=== PATIENT | female | born 1975 | race Caucasian/White ===

== ENCOUNTER 2017-11-22 11:12 | Emergency (ER) | payer BC ==
[2017-11-22 12:27] VITALS: BP 145/99
--- NOTE | 2017-11-22 13:02 | UC ---
Throat Pain/Nasal Song HPI - HPI Summary HPI Summary: Started getting sick with normal cold symptoms 10 days ago after everyone else in house had gotten similar cold. Since then congestion has settled in forehead/ face. Denies fever, trouble breathing, or cough. - History of Current Complaint Chief Complaint: UCRespiratory Stated Complaint: CONGESTED Time Seen by Provider: 11/22/17 12:54 Hx Obtained From: Patient Hx Last Menstrual Period: IUD ?: No Onset/Duration: Gradual Onset, Lasting Days Severity: Mild Pain Intensity: 4 Cough: None Associated Signs & Symptoms: Positive: Sinus Discomfort, Nasal Discharge. Negative: Wheezing, Hoarseness - Allergies/Home Medications Allergies/Adverse Reactions: Allergies Allergy/AdvReac Type Severity Reaction Status Date / Time No Known Allergies Allergy Verified 11/22/17 12:28 Home Medications: Home Medications buPROPion HCl [Forfivo Xl] 1 tab PO DAILY 11/22/17 [History Confirmed 11/22/17] PMH/Surg Hx/FS Hx/Imm Hx Psychological History: Anxiety, Depression - Surgical History Surgical History: None - Social History Occupation: Unemployed Lives: With Family Alcohol Use: Rare Substance Use Type: None Smoking Status (MU): Never Smoked Tobacco Review of Systems Constitutional: Negative Skin: Negative Eyes: Negative ENT: Nasal Discharge, Sinus Congestion Respiratory: Negative Cardiovascular: Negative Gastrointestinal: Negative Genitourinary: Negative Motor: Negative Neurovascular: Negative Musculoskeletal: Negative Neurological: Negative Psychological: Negative Is Patient Immunocompromised?: No All Other Systems Reviewed And Are Negative: Yes Physical Exam Triage Information Reviewed: Yes Appearance: Well-Appearing, No Pain Distress, Well-Nourished Vital Signs: Initial Vital Signs Temp 98.6 F 11/22/17 12:25 Pulse 68 11/22/17 12:25 Resp 18 11/22/17 12:25 BP 145/99 11/22/17 12:25 Pulse Ox 99 11/22/17 12:25 Vital Signs Reviewed: Yes Eye Exam: Normal Eyes: Positive: Conjunctiva Clear ENT: Positive: Hearing grossly normal, Pharynx normal, Nasal congestion, TMs normal, Sinus tenderness - diffuse. Negative: Nasal drainage Dental Exam: Normal Neck exam: Normal Neck: Positive: Supple, Nontender, No Lymphadenopathy Respiratory Exam: Normal Respiratory: Positive: Chest non-tender, Lungs clear, Normal breath sounds, No respiratory distress, No accessory muscle use Cardiovascular Exam: Normal Cardiovascular: Positive: RRR, No Murmur Musculoskeletal Exam: Normal Neurological Exam: Normal Neurological: Positive: Alert Psychological Exam: Normal Skin Exam: Normal Throat Pain/Nasal Course/Dx - Differential Dx/Diagnosis Provider Diagnoses: Acute rhinosinusitis Discharge - Discharge Plan Condition: Stable Disposition: HOME Prescriptions: Amoxicillin/Clavulanate TAB* [Augmentin TAB 875*] 875 mg PO BID #14 tab Patient Education Materials: Rhinosinusitis (ED) Referrals: Isaak Rosario MD [Primary Care Provider] - Additional Instructions: As we discussed, it is not certain that you have a bacterial infection, and we have no way to know for sure. It would be safe to wait 2-3 days to see if your congestion starts to pass on its own -- if so, then I recommend you not start this antibiotic. If you develop fever, focal pain, or marked worsening at any time in the next week, please start the antibiotic and take the whole course. Come back at any time if you have difficulty breathing or severe symptoms.
== END 2017-11-22 13:06 | disposition home or self-care (01) ==
LOC: UCEAST 11:12
DX: J01.90 Acute sinusitis, unspecified (principal); Z97.5 Presence of (intrauterine) contraceptive device; F41.9 Anxiety disorder, unspecified; F32.9 Major depressive disorder, single episode, unspecified
CPT/HCPCS: 99212; G0463